=== PATIENT | male | born 1995 | race Hispanic/Latino ===

== ENCOUNTER 2017-08-23 10:23 | Emergency (ER) | payer OTHER, SELFPAY ==
[2017-08-23] MEDS ORDERED: cefTRIAXone\\ROCEPHIN 250 MG VIAL ONE (10:52)
[2017-08-23] MEDS ORDERED: Lidocaine 1% PF 5 ML VIAL ONE (10:53)
[2017-08-23] MEDS ORDERED: Azithromycin 250 MG TAB ONE (10:53)
[2017-08-23] MEDS ORDERED: metroNIDAZOLE 500 MG TAB ONE (11:07)
== END 2017-08-23 11:19 | disposition home or self-care (01) ==
LOC: ERS 10:23
DX: Z53.9 Procedure and treatment not carried out, unspecified reason (principal)
CPT/HCPCS: J0696; J2001